=== PATIENT | male | born 1985 | race Caucasian/White ===

== ENCOUNTER 2016-10-06 23:20 | Emergency (ER) | payer OTHER, BC ==
[~2016-10-06] VITALS: Ht 177.8 cm; Wt 126.9 kg
[2016-10-06 23:47] VITALS: BP 120/68
== END 2016-10-07 00:40 | disposition left against medical advice (07) ==
LOC: EME 23:20
DX: R22.0 Localized swelling, mass and lump, head (principal); Z53.21 Procedure and treatment not carried out due to patient leaving prior to being seen by health care provider